=== PATIENT | male | born 1995 | race Caucasian/White ===

== ENCOUNTER 2018-08-23 21:55 | Emergency (ER) | payer OTHER, MEDICAID, SELFPAY ==
[2018-08-23 22:04] VITALS: BP 116/73; PULSE 85; RESP 16; TEMP 36.4; O2SAT 96; BMI 19.6
--- NOTE | 2018-08-25 05:49 | ED.BACK ---
HPI - Back Pain/Injury General Chief Complaint: Back Pain/Injury Stated Complaint: neck pain since this morning Related Data Previous Rx's Medication Instructions Recorded cyclobenzaprine 10 mg PO TID PRN #20 tab 08/24/18 naproxen 500 mg PO BID PRN #20 tab 08/24/18 Allergies Allergy/AdvReac Type Severity Reaction Status Date / Time No Known Drug Allergies Allergy Verified 08/23/18 22:09 ON LICENSE OF [facility] Social History Smoking Status: Never smoker Social History Smoking Status: Never smoker Exam Initial Vital Signs Initial Vital Signs: Vital Signs Temperature 97.5 F L 08/23/18 22:04 Pulse Rate 85 08/23/18 22:04 Respiratory Rate 16 08/23/18 22:04 Blood Pressure 116/73 08/23/18 22:04 Pulse Oximetry 96 08/23/18 22:04 Discharge Plan Departure Patient Disposition: Left Without Being Seen Clinical Impression: Patient left without being seen Discharge Date/Time: 08/24/18 01:52 Interventions: ED Discharge Assessment Last Done: 08/24/18 01:52
== END 2018-08-24 01:52 | disposition left against medical advice (07) ==
PROVIDERS: Emergency Provider Emergency Medicine; Family Provider Family Medicine; PCP Family Medicine
DX: M54.2 Cervicalgia (principal); Z53.21 Procedure and treatment not carried out due to patient leaving prior to being seen by health care provider
CPT/HCPCS: 99282

== ENCOUNTER 2018-08-24 10:13 | Emergency (ER) | payer OTHER, MEDICAID, SELFPAY ==
[2018-08-24 10:17] VITALS: BP 130/76; PULSE 83; RESP 20; TEMP 36.1; O2SAT 100; BMI 19.6
--- NOTE | 2018-08-24 12:16 | ED.NECK ---
HPI - Neck Pain/Injury [facility] - Last Filed: 08/24/18 13:47> General Chief Complaint: Neck Pain/Injury Stated Complaint: NECK PAIN Time Seen by Provider: 08/24/18 12:10 Source: patient Mode of arrival: ambulatory Limitations: no limitations History of Present Illness HPI Narrative: Patient is a healthy 22-year-old male nonsmoker presents with his mother with a chief complaint of neck pain since yesterday. he states that he woke up yesterday popped his neck and all the sudden the muscles on the left side of his neck seized up. he denies any numbness, tingling, incontinence. He denies any trauma or falls. He has not taken anything for the pain and denies Tylenol or ibuprofen use. He has tried to use ice and heat on occasion. He denies any weakness. He believes he is having muscle spasms. He came to the emergency department last night but left due to wait times. Related Data Previous Rx's Medication Instructions Recorded cyclobenzaprine 10 mg PO TID PRN #20 tab 08/24/18 naproxen 500 mg PO BID PRN #20 tab 08/24/18 Allergies Allergy/AdvReac Type Severity Reaction Status Date / Time No Known Drug Allergies Allergy Verified 08/23/18 22:09 Review of Systems <[facility] - Last Filed: 08/24/18 13:47> Review of Systems GENERAL: Denies chills, fatigue, malaise, fever, sweats. HEENT: Denies sinus pain, ear pain, sore throat, difficulty swallowing, dizziness. RESPIRATORY: Denies dyspnea, cough, wheezing, hemoptysis, sputum. CARDIOVASCULAR: Denies chest pain, palpitations, orthopnea, edema, GASTROINTESTINAL: Denies nausea, vomiting, abdominal pain, diarrhea, constipation, melena. : Denies dysuria, frequency, incontinence, hematuria, urinary retention. MUSCULOSKELETAL: See HPI SKIN: Denies rash, skin lesions, or other NEUROLOGIC: Denies weakness, headache, numbness, change in speech, confusion, seizures, incoordination. PSYCHIATRIC: No concerning psychosocial issues. 12 point review of systems is negative except for those stated above [facility] - Last Filed: 08/24/18 13:47> Social History Smoking Status: Never smoker Social History Smoking Status: Never smoker Exam <JONES Eddy - Last Filed: 08/24/18 13:47> Narrative Exam Narrative: GENERAL: This is a well-nourished, well-developed patient, In no acute distress with mother at bedside HEAD: Atraumatic. Normocephalic. No temporal or scalp tenderness. EYES: Pupils equal round and reactive. Extraocular motions intact. No scleral icterus. No injection or drainage. ENT: Nose without bleeding, purulent drainage or septal hematoma. Throat without erythema, tonsillar hypertrophy or exudate. Uvula midline. Airway patent. NECK: Trachea midline. No JVD or lymphadenopathy. Supple, nontender, no meningeal signs. CARDIOVASCULAR: Regular rate and rhythm without murmurs, gallops, or rubs. RESPIRATORY: Clear to auscultation. Breath sounds equal bilaterally. No wheezes, rales, or rhonchi. No cough. No increased respiratory effort. EXTREMITIES: No clubbing, cyanosis, or edema. No joint tenderness, effusion, or edema noted. Strength is equal upper and lower extremities bilaterally. BACK: Nontender without deformity or crepitance. No flank tenderness. No pain to C-spine or spinal palpation. Pain to palpation of left sternocleidomastoid. NEURO: AOx3. Strength is equal upper and lower extremities bilaterally. No obvious cranial nerve deficit. SKIN: No rash or erythema. no erythema, ecchymosis or abrasion laceration noted left-sided neck. Initial Vital Signs Initial Vital Signs: Vital Signs Temperature 97.0 F L 08/24/18 10:17 Pulse Rate 83 08/24/18 10:17 Respiratory Rate 08/24/18 10:17 Blood Pressure 130/76 08/24/18 10:17 Pulse Oximetry 100 08/24/18 10:17 <Maryam Phillips DO - Last Filed: 08/25/18 20:01> Initial Vital Signs Initial Vital Signs: Vital Signs Temperature 97.0 F L 08/24/18 10:17 Pulse Rate 83 08/24/18 10:17 Respiratory Rate 20 08/24/18 10:17 Blood Pressure 130/76 08/24/18 10:17 Pulse Oximetry 100 08/24/18 10:17 Course <JONES Eddy - Last Filed: 08/24/18 13:47> Course Narrative: He checked on the patient during his stay in the emergency department. He stated pain relief from the Toradol and Flexeril. He requested to go home. Orders Ordered: Discontinued Medications Cyclobenzaprine HCl (Flexeril) 10 mg PO NOW ONE Stop: 08/24/18 12:18 Last Admin: 08/24/18 12:20 Dose: 10 mg Ketorolac Tromethamine (Toradol) 60 mg IM NOW ONE Stop: 08/24/18 12:18 Last Admin: 08/24/18 12:20 Dose: 60 mg Vital Signs - 8 hr 08/24/18 10:17 08/24/18 13:21 Temperature 97.0 F L Pulse Rate 83 77 Respiratory Rate 20 18 Blood Pressure 130/76 116/75 Pulse Oximetry 100 100 <Maryam Phillips DO - Last Filed: 08/25/18 20:01> Orders Ordered: Discontinued Medications Cyclobenzaprine HCl (Flexeril) 10 mg PO NOW ONE Stop: 08/24/18 12:18 Last Admin: 08/24/18 12:20 Dose: 10 mg Ketorolac Tromethamine (Toradol) 60 mg IM NOW ONE Stop: 08/24/18 12:18 Last Admin: 08/24/18 12:20 Dose: 60 mg Vital Signs - 8 hr 08/24/18 10:17 08/24/18 13:21 Temperature 97.0 F L Pulse Rate 83 77 Respiratory Rate 20 18 Blood Pressure 130/76 116/75 Pulse Oximetry 100 100 [facility] - Neck Pain/Injury <MAULIK Eddy-BC - Last Filed: 08/24/18 13:47> [facility] Narrative Medical decision making narrative: patient presents with a chief complaint of neck pain after popping his neck without trauma or falls. Exam is consistent with muscle spasm. I discussed the possibility of x-ray, patient And his mothermother declined at this point time. He was treated in the emergency department Toradol and Flexeril. He is doing with vascularly intact and does not have an obvious deficit. He is hemodynamically stable in achieve pain relief with medications given. I discussed at length return precautions of worsening, no improvement, any neurological conditions. I encouraged him to follow up with his primary care provider in the next 2 days. Patient and mother denied questions or concerns at this point time. Discharge Plan Departure Patient Disposition: Home Clinical Impression: Strain of neck muscle Qualifiers: Encounter type: initial encounter Qualified Code(s): S16.1XXA - Strain of muscle, fascia and tendon at neck level, initial encounter Discharge Date/Time: 08/24/18 13:21 Interventions: ED Discharge Assessment Last Done: 08/24/18 13:21 Instructions: DI for Muscle Strain, DI for Neck Pain Activity Restrictions/Additional Instructions: Your exam is consistent with muscle strain or spasm. Please use the as needed muscle relaxer as we discussed. You can start taking in the prescription naproxen tonight. Do not combine that with ibuprofen or any other NSAIDs. Monitor for any changes in strength or neurological compromise. Please be evaluated if any of these happen. Follow up with her primary care provider as we discussed. Come back to the emergency department for any acute concerns. Prescriptions: New cyclobenzaprine 10 mg tablet 10 mg PO TID PRN (Reason: muscle spasm) Qty: 20 RF: 0 naproxen 500 mg tablet 500 mg PO BID PRN (Reason: pain) Qty: 20 RF: 0 Referrals: Pedro Mojica MD [Primary Care Provider] - <Maryam Phillips DO - Last Filed: 08/25/18 20:01> Cosign ED Attending Urielature Attestation: I was immediately available in the department for consultation. Documentation has been reviewed. I agree with assessment and plan.
--- NOTE | 2018-08-24 12:19 | ED_ITS ---
HPI - Neck Pain/Injury <[facility] - Last Filed: 08/24/18 13:47> General Chief Complaint: Neck Pain/Injury Stated Complaint: NECK PAIN Time Seen by Provider: 08/24/18 12:10 Source: patient Mode of arrival: ambulatory Limitations: no limitations History of Present Illness HPI Narrative: Patient is a healthy 22-year-old male nonsmoker presents with his mother with a chief complaint of neck pain since yesterday. he states that he woke up yesterday popped his neck and all the sudden the muscles on the left side of his neck seized up. he denies any numbness, tingling, incontinence. He denies any trauma or falls. He has not taken anything for the pain and denies Tylenol or ibuprofen use. He has tried to use ice and heat on occasion. He denies any weakness. He believes he is having muscle spasms. He came to the emergency department last night but left due to wait times. Related Data Previous Rx's Medication Instructions Recorded cyclobenzaprine 10 mg PO TID PRN #20 tab 08/24/18 naproxen 500 mg PO BID PRN #20 tab 08/24/18 Allergies Allergy/AdvReac Type Severity Reaction Status Date / Time No Known Drug Allergies Allergy Verified 08/23/18 22:09 [facility] Systems [facility] Last Filed: 08/24/18 13:47> Review of Systems GENERAL: Denies chills, fatigue, malaise, fever, sweats. HEENT: Denies sinus pain, ear pain, sore throat, difficulty swallowing, dizziness. RESPIRATORY: Denies dyspnea, cough, wheezing, hemoptysis, sputum. CARDIOVASCULAR: Denies chest pain, palpitations, orthopnea, edema, GASTROINTESTINAL: Denies nausea, vomiting, abdominal pain, diarrhea, constipation, melena. : Denies dysuria, frequency, incontinence, hematuria, urinary retention. MUSCULOSKELETAL: See HPI SKIN: Denies rash, skin lesions, or other NEUROLOGIC: Denies weakness, headache, numbness, change in speech, confusion, seizures, incoordination. PSYCHIATRIC: No concerning psychosocial issues. 12 point review of systems is negative except for those stated above PFSH <[facility] - Last Filed: 08/24/18 13:47> Social History Smoking Status: Never smoker Social History Smoking Status: Never smoker Exam <JONES Eddy - Last Filed: 08/24/18 13:47> Narrative Exam Narrative: GENERAL: This is a well-nourished, well-developed patient, In no acute distress with mother at bedside HEAD: Atraumatic. Normocephalic. No temporal or scalp tenderness. EYES: Pupils equal round and reactive. Extraocular motions intact. No scleral icterus. No injection or drainage. ENT: Nose without bleeding, purulent drainage or septal hematoma. Throat without erythema, tonsillar hypertrophy or exudate. Uvula midline. Airway patent. NECK: Trachea midline. No JVD or lymphadenopathy. Supple, nontender, no meningeal signs. CARDIOVASCULAR: Regular rate and rhythm without murmurs, gallops, or rubs. RESPIRATORY: Clear to auscultation. Breath sounds equal bilaterally. No wheezes, rales, or rhonchi. No cough. No increased respiratory effort. EXTREMITIES: No clubbing, cyanosis, or edema. No joint tenderness, effusion, or edema noted. Strength is equal upper and lower extremities bilaterally. BACK: Nontender without deformity or crepitance. No flank tenderness. No pain to C-spine or spinal palpation. Pain to palpation of left sternocleidomastoid. NEURO: AOx3. Strength is equal upper and lower extremities bilaterally. No obvious cranial nerve deficit. SKIN: No rash or erythema. no erythema, ecchymosis or abrasion laceration noted left-sided neck. Initial Vital Signs Initial Vital Signs: Vital Signs Temperature 97.0 F L 08/24/18 10:17 Pulse Rate 83 08/24/18 10:17 Respiratory Rate 08/24/18 10:17 Blood Pressure 130/76 08/24/18 10:17 Pulse Oximetry 100 08/24/18 10:17 <Maryam Phillips DO - Last Filed: 08/25/18 20:01> Initial Vital Signs Initial Vital Signs: Vital Signs Temperature 97.0 F L 08/24/18 10:17 Pulse Rate 83 08/24/18 10:17 Respiratory Rate 20 08/24/18 10:17 Blood Pressure 130/76 08/24/18 10:17 Pulse Oximetry 100 08/24/18 10:17 Course <JONES Eddy - Last Filed: 08/24/18 13:47> Course Narrative: He [facility] on the [facility] He stated pain relief from the Toradol and Flexeril. He requested to go home. Orders Ordered: Discontinued Medications Cyclobenzaprine HCl (Flexeril) 10 mg PO NOW ONE Stop: 08/24/18 12:18 Last Admin: 08/24/18 12:20 Dose: 10 mg Ketorolac Tromethamine (Toradol) 60 mg IM NOW ONE Stop: 08/24/18 12:18 Last Admin: 08/24/18 12:20 Dose: 60 mg Vital Signs - 8 hr 08/24/18 10:17 08/24/18 13:21 Temperature 97.0 F L Pulse Rate 83 77 Respiratory Rate 20 18 Blood Pressure 130/76 116/75 Pulse Oximetry 100 100 <Maryam Phillips DO - Last Filed: 08/25/18 20:01> Orders Ordered: Discontinued Medications Cyclobenzaprine HCl (Flexeril) 10 mg PO NOW ONE Stop: 08/24/18 12:18 Last Admin: 08/24/18 12:20 Dose: 10 mg Ketorolac Tromethamine (Toradol) 60 mg IM NOW ONE Stop: 08/24/18 12:18 Last Admin: 08/24/18 12:20 Dose: 60 mg Vital Signs - 8 hr 08/24/18 10:17 08/24/18 13:21 Temperature 97.0 F L Pulse Rate 83 77 Respiratory Rate 20 18 Blood Pressure 130/76 116/75 Pulse Oximetry 100 100 [facility] - Neck Pain/Injury <MAULIK Eddy-BC - Last Filed: 08/24/18 13:47> [facility] Narrative Medical decision making narrative: patient presents with a chief complaint of neck pain after popping his neck without trauma or falls. Exam is consistent with muscle spasm. I discussed the possibility of x-ray, patient And his mothermother declined at this point time. He was treated in the emergency department Toradol and Flexeril. He is doing with vascularly intact and does not have an obvious deficit. He is hemodynamically stable in achieve pain relief with medications given. I discussed at length return precautions of worsening, no improvement, any neurological conditions. I encouraged him to follow up with his primary care provider in the next 2 days. Patient and mother denied questions or concerns at this point time. Discharge Plan Departure Patient Disposition: Home Clinical Impression: Strain of neck muscle Qualifiers: Encounter type: initial encounter Qualified Code(s): S16.1XXA - Strain of muscle, fascia and tendon at neck level, initial encounter Discharge Date/Time: 08/24/18 13:21 Interventions: ED Discharge Assessment Last Done: 08/24/18 13:21 Instructions: DI for Muscle Strain, DI for Neck Pain Activity Restrictions/Additional Instructions: Your exam is consistent with muscle strain or spasm. Please use the as needed muscle relaxer as we discussed. You can start taking in the prescription naproxen tonight. Do not combine that with ibuprofen or any other NSAIDs. Monitor for any changes in strength or neurological compromise. Please be evaluated if any of these happen. Follow up with her primary care provider as we discussed. Come back to the emergency department for any acute concerns. Prescriptions: New cyclobenzaprine 10 mg tablet 10 mg PO TID PRN (Reason: muscle spasm) Qty: 20 RF: 0 naproxen 500 mg tablet 500 mg PO BID PRN (Reason: pain) Qty: 20 RF: 0 Referrals: Pedro Mojica MD [Primary Care Provider] - <Maryam Phillips DO - Last Filed: 08/25/18 20:01> Cosign ED Attending Delbert Attestation: I was immediately available in the department for consultation. Documentation has been reviewed. I agree with assessment and plan.
[2018-08-24] MEDS: CYCLOBENZAPRINE 10 MG TABLET PO (12:20)
[2018-08-24] MEDS: KETOROLAC 60 MG/2 ML VIAL IM (12:20)
[2018-08-24 13:21] VITALS: BP 116/75; PULSE 77; RESP 18; O2SAT 100
== END 2018-08-24 13:21 | disposition home or self-care (01) ==
PROVIDERS: Emergency Provider Nurse Practitioner Family; PCP Family Medicine
DX: S16.1XXA Strain of muscle, fascia and tendon at neck level, initial encounter (principal)
CPT/HCPCS: 99282; J1885

== ENCOUNTER 2020-02-01 15:53 | Emergency (ER) | payer BC, SELFPAY ==
[2020-02-01 16:01] VITALS: BP 140/87; PULSE 91; RESP 16; TEMP 37.1; O2SAT 98
--- NOTE | 2020-02-01 16:09 | DI.CT.S_ITS ---
PROCEDURE: CT HEAD/BRAIN WO CON INDICATIONS: New onset headache with left arm numbness TECHNIQUE: Noncontrast 4.5 mm thick angled axial sections acquired from the foramen magnum to the vertex, with coronal and sagittal reformats. For radiation dose reduction, the following was used: automated exposure control, adjustment of mA and/or kV according to patient size. COMPARISON: None. FINDINGS: Image quality: Excellent. CSF spaces: Basal cisterns are patent. No extra-axial fluid collections. Ventricles are normal in size and shape. Brain: No midline shift. No intracranial masses or hemorrhage. [place]-white matter interface is normal. Skull and face: Calvarium and visualized facial bones are intact, without suspicious lesions. Sinuses: Visualized sinuses and mastoids are clear. IMPRESSION: No acute intracranial finding. MRI recommended if there is clinical concern for acute ischemia. Dictated by: Rashad Kruger M.D. on 02/01/2020 at 16:26 Approved by: Rashad Kruger M.D. on 02/01/2020 at 16:27
[2020-02-01 16:15] LABS: Add Manual Diff / Slide Review NO; Basophils Absolute Auto 100 /uL (0-100); Eosinophils Absolute Auto 300 /uL (0-450); Eosinophils Percent Auto 4.1 % (2-4); Hematocrit 43.9 % (41-53); Hemoglobin 14.9 g/dL (13.5-17.5); Lymphocytes Absolute Auto 2900 /uL (1100-4500); Lymphocytes Percent Auto 44.7 % (25-40); Mean Corpuscular HGB Conc 33.9 % (30-36); Mean Corpuscular Hemoglobin 29.7 PG (26-34); Mean Corpuscular Volume 87.5 fL (80-100); Monocytes Absolute Auto 600 /uL (0-900); Monocytes Percent Auto 9.2 % (3-14); Neutrophils Absolute Auto 2700 /uL (1500-7000); Platelet Count 286 X10^3/uL (150-400); Red Blood Cell Count 5.01 X10^6/uL (4.5-5.9); Red Cell Distribution Width 12.7 % (11.6-14.8); White Blood Cell Count 6.5 X10^3/uL (4.5-11.0)
--- NOTE | 2020-02-01 16:19 | PC.NURSE ---
patient states at 1300 while at [employer] felt blurry vision. Went home rested, upon waking noticed left peripheral vision loss in both eyeswhich has since resolved. Patient reports over time vision has improved but headache has gotten worse. patient reports increase stress, not eating and drinking well has noticed some constipation
[2020-02-01 16:30] LABS: Alanine Aminotransferase 13 IU/L (<50); Albumin 4.9 g/dL (3.5-5.0); Albumin Globulin Ratio 1.6 (1.0-2.8); Alkaline Phosphatase 81 U/L (38-126); Aspartate Aminotransferase 21 IU/L (17-59); BUN Creatinine Ratio 15.2 (6-22); Bilirubin Total 0.9 mg/dL (0.2-1.3); Blood Urea Nitrogen 15 mg/dL (9-20); Calcium 9.7 mg/dL (8.4-10.2); Carbon Dioxide 26 mmol/L (22-32); Chloride 104 mmol/L (98-107); Estimated Glomerular Filt Rate > 60.0 mL/min (>60); Glucose 105 mg/dL (70-100); HEMOLYSIS < 15 (0-50); Potassium 3.9 mmol/L (3.4-5.1); Sodium 138 mmol/L (137-145); Total Protein 7.9 g/dL (6.3-8.2)
--- NOTE | 2020-02-01 16:30 | ED_ITS ---
HPI - Neuro Symptoms/Deficit General Chief Complaint: Neuro Symptoms/Deficit Stated Complaint: HEADACHE LOSS OF VISION LEFT ARM NUMBNESS Time Seen by Provider: 02/01/20 16:07 Source: patient Mode of arrival: Ambulatory Limitations: no limitations History of Present Illness HPI Narrative: Patient is a healthy 24-year-old male with no known medical history presenting today with headache blurry vision and left arm numbness all which have improved. He says about 1:00 p.m. he started noticing some blurry vision he went home and took a nap which point he woke up and has some left arm numbness. He says his left arm has improved he still has some blurry vision in bilateral eyes, he denies any blackening or loss of vision at any time. He now has slight headache. He otherwise is feeling healthy he denies any infectious symptoms including fever shortness of breath or chest pain. On Anticoagulants: No Associated symptoms: denies other symptoms Related Data Previous Rx's Medication Instructions Recorded cyclobenzaprine 10 mg PO TID PRN #20 tab 08/24/18 naproxen 500 mg PO BID PRN #20 tab 08/24/18 Allergies Allergy/AdvReac Type Severity Reaction Status Date / Time No Known Drug Allergies Allergy Verified 08/23/18 22:09 Review of Systems Review of Systems Narrative: GENERAL: Denies chills, fatigue, malaise, fever, sweats, travel HEENT: Denies sinus pain, ear pain, sore throat, difficulty swallowing, neck pain RESPIRATORY: Denies dyspnea, cough, wheezing, hemoptysis, sputum. CARDIOVASCULAR: Denies chest pain, palpitations, orthopnea, edema GASTROINTESTINAL: Denies nausea, vomiting, abdominal pain, diarrhea, constipation, melena. : Denies dysuria, frequency, incontinence, hematuria, urinary retention, flank pain. MUSCULOSKELETAL: Denies weakness, joint pain, or bony pain SKIN: No rash, no erythema, no pruritus NEUROLOGIC: See HPI PSYCHIATRIC: No concerning psychosocial issues. 12 point review of systems is negative except for those stated above and HPI Patient History Medical History Patient denies medical problems (Acute) Social History Smoking Status: Never smoker Smoking Status: Never smoker alcohol intake frequency: 0-2 drinks per day Substance Use Type: marijuana Exam Initial Vital Signs Initial Vital Signs: Vital Signs Temperature 98.7 F 02/01/20 16:01 Pulse Rate 91 H 02/01/20 16:01 Respiratory Rate 16 02/01/20 16:01 Blood Pressure 140/87 02/01/20 16:01 Pulse Oximetry 98 02/01/20 16:01 GENERAL: Well-appearing, well-nourished and in no acute distress. HEENT: Head atraumatic,EOMI, pupils reactive, face symmetric, moist mucous membranes CARDIOVASCULAR: Regular rate and rhythm without murmurs, rubs or gallops. RESPIRATORY: Breath sounds equal bilaterally, no wheezes rales or rhonchi. ABDOMEN: Soft, nontender. Normoactive bowel sounds all 4 quadrants. No gua rding or rebound. EXTREMITIES: Normal range of motion, no clubbing or edema. Neurovascularly intact NEUROLOGICAL: Alert and oriented x4.Normal gait and speech. Cranial nerves II through XII grossly intact. Good [id number], good [id number], strength equal bilaterally, no dysarthria or aphasia, sensation in tact to soft touch bilaterally, no visual changes, no facial droop SKIN: Warm, dry, no laceration, no petechiae, no rashes or lesions. Scores NIH Stroke Scale Level of Conciousness: Alert, keenly responsive Ask month/age: Answers both questions correctly. Open/close eyes, close hand: Performs both tasks correctly Best gaze horizontal: Normal Visual kerr: No visual loss Facial palsy: Normal symetrical movement Left arm drift: No drift for full 10 sec Right arm drift: No drift for full 10 sec Left leg drift: No drift for full 10 sec Right leg drift: No drift for full 10 sec Limb ataxia: Absent Sensory on face/arms/legs: Normal, no sensory loss Best language: No aphasia, normal Dysarthria: Normal Extinction or inattention: No abnormality Total NIH Stroke scale score: 0 Course Orders Ordered: Discontinued Medications Sodium Chloride (Normal Saline 0.9%) 1,000 mls @ 1,000 mls/hr IV BOLUS ONE Stop: 02/01/20 17:08 Last Infusion: 02/01/20 17:41 Dose: 1,000 mls/hr Documented by: Admin: 02/01/20 16:32 Dose: 1,000 mls/hr Documented by: BTONER Vital Signs Vital signs: Vital Signs - 8 hr 02/01/20 16:01 Temperature 98.7 F Pulse Rate 91 H Respiratory Rate 16 Blood Pressure 140/87 Pulse Oximetry 98 MDM - Neuro Symptoms/Deficit Lab Data Attestation: I reviewed the patient's lab results. Result diagrams: 02/01/20 16:10 02/01/20 16:10 Labs: Lab Results 02/01/20 02/01/20 Range/Units 16:10 16:10 WBC 6.5 (4.5-11.0) X10^3/uL RBC 5.01 (4.5-5.9) X10^6/uL Hgb 14.9 (13.5-17.5) g/dL Hct 43.9 (41-53) % MCV 87.5 (80-100) fL MCH 29.7 (26-34) PG MCHC 33.9 (30-36) % RDW 12.7 (11.6-14.8) % Plt Count 286 (150-400) X10^3/uL Neut % (Auto) 41.0 L (50-75) % Lymph % (Auto) 44.7 H (25-40) % [place] % (Auto) 9.2 (3-14) % Eos % (Auto) 4.1 H (2-4) % Baso % (Auto) 1.0 (0-2) % Neut # (Auto) 2700 (3905-7138) /uL Lymph # (Auto) 2900 (9900-9778) /uL [place] # (Auto) 600 (0-900) /uL Eos # (Auto) 300 (0-450) /uL Baso # (Auto) 100 (0-100) /uL Sodium 138 (137-145) mmol/L Potassium 3.9 (3.4-5.1) mmol/L Chloride 104 (98-107) mmol/L Carbon Dioxide 26 (22-32) mmol/L BUN 15 (9-20) mg/dL Creatinine 0.99 (0.66-1.25) mg/dL Estimated GFR > 60.0 (>60) mL/min BUN/Creatinine Ratio 15.2 (6-22) Glucose 105 H (70-100) mg/dL Calcium 9.7 (8.4-10.2) mg/dL Total Bilirubin 0.9 (0.2-1.3) mg/dL AST 21 (17-59) IU/L ALT 13 (<50) IU/L Alkaline Phosphatase 81 (38-126) U/L Total Protein 7.9 (6.3-8.2) g/dL Albumin 4.9 (3.5-5.0) g/dL Globulin 3.0 (1.7-4.1) g/dL Albumin/Globulin Ratio 1.6 (1.0-2.8) Imaging Data CT scan - head: Radiologist's Impression: PROCEDURE: CT HEAD/BRAIN WO CON INDICATIONS: New onset headache with left arm numbness TECHNIQUE: Noncontrast 4.5 mm thick angled axial sections acquired from the foramen magnum to the vertex, with coronal and sagittal reformats. For radiation dose reduction, the following was used: automated exposure control, adjustment of mA and/or kV according to patient size. COMPARISON: None. FINDINGS: Image quality: Excellent. CSF spaces: Basal cisterns are patent. No extra-axial fluid collections. Ventricles are normal in size and shape. Brain: No midline shift. No intracranial masses or hemorrhage. [place]-white matter interface is normal. Skull and face: Calvarium and visualized facial bones are intact, without suspicious lesions. Sinuses: Visualized sinuses and mastoids are clear. IMPRESSION: No acute intracranial finding. MRI recommended if there is clinical concern for acute ischemia. Dictated by: Rashad Kruger M.D. on 02/01/2020 at 16:26 ECG Data Attestation: I personally reviewed and interpreted this ECG as follows: Prior ECG tracings: not available for review Interpretation: Normal sinus rhythm rate 76 p.r. interval 140 QRS [address] changes normal intervals no priors to compare MDM Narrative Medical decision making narrative: Patient's symptoms have completely resolved as his headache improved he no rule focal deficits at this time I think symptoms may be related to complicated headache which now seems to be improving. He has no prior history of migraines. At this time I recommend he go home and return if symptoms worsen. Discharge Plan Departure Patient Disposition: Home Clinical Impression: Headache Qualifiers: Headache type: unspecified Headache chronicity pattern: unspecified pattern Intractability: not intractable Qualified Code(s): R51 - Headache Discharge Date/Time: 02/01/20 17:42 Instructions: DI for Headache Activity Restrictions/Additional Instructions: *You have been diagnosed with headache *What to do: At this time blood work and CT are overall reassuring and show no abnormality. Recommend he rest and stay hydrated. *Continue to take medications as directed *Follow up with your primary care provider in 2-3 days *Return to ER if you should have worsening headache visual changes weakness numbness tingling or any new, worsening or concerning symptoms Prescriptions: No Action cyclobenzaprine 10 mg tablet 10 mg PO TID PRN (Reason: muscle spasm) Qty: 20 RF: 0 naproxen 500 mg tablet 500 mg PO BID PRN (Reason: pain) Qty: 20 RF: 0 Referrals: Pedro Mojica MD [Primary Care Provider] -
[2020-02-01] MEDS: SODIUM CHLORIDE 0.9% 1,000 ML 1000 ML IV (16:32)
[2020-02-01 17:42] VITALS: BP 116/70; PULSE 66; RESP 14; O2SAT 99
== END 2020-02-01 17:42 | disposition home or self-care (01) ==
PROVIDERS: Emergency Provider Emergency Medicine; PCP Family Medicine
DX: R51 Headache (principal); H53.8 Other visual disturbances; R20.0 Anesthesia of skin
CPT/HCPCS: 36415; 70450; 80053; 85025; 93005; 96360; 99284; 99285

== ENCOUNTER → 2020-10-05 08:45 | Outpatient (CLI) | payer BC, SELFPAY ==
[2020-10-07 01:12] LABS: Chlamydia trachomatis NAA Negative (Negative); Neisseria gonorrhoeae NAA Negative (Negative)
== END ==
PROVIDERS: Visit Provider Student in an Organized Health Care Education/Training Program
DX: J02.9 Acute pharyngitis, unspecified (principal)
CPT/HCPCS: 87070; 87491; 87591

== ENCOUNTER 2021-02-17 04:31 | Emergency (ER) | payer BC, SELFPAY ==
[2021-02-17 04:45] VITALS: BP 136/74; PULSE 93; RESP 16; TEMP 37.2; O2SAT 99; BMI 21.5
--- NOTE | 2021-02-17 05:19 | ED.HA ---
HPI - Headache General Chief Complaint: Headache Stated Complaint: migraine body aches x1 day Time Seen by Provider: 02/17/21 05:19 Mode of arrival: Ambulatory Limitations: no limitations History of Present Illness HPI Narrative: 25-year-old male nonsmoker without any contributing medical history presents with a chief complaint of gradual headache over the course of the day which is frontal in nature and seems to be worse with bright lights and loud noise. He denies any recent injury nor fever or chills. He has no neck pain or neurologic symptoms such as blurred vision, trouble with speech or weakness. He has had some nasal congestion and runny nose as well as body aches. He has some nausea but no vomiting. He denies any diarrhea. He has had no urinary complaints. Related Data Previous Rx's Medication Instructions Recorded cyclobenzaprine 10 mg tablet 10 mg PO TID PRN #20 tab 08/24/18 naproxen 500 mg tablet 500 mg PO BID PRN #20 tab 08/24/18 Allergies Allergy/AdvReac Type Severity Reaction Status Date / Time No Known Drug Allergies Allergy Verified 10/05/20 09:19 Review of Systems Review of Systems Narrative: GENERAL: See HPI HEENT: See HPI RESPIRATORY: Denies dyspnea, cough, wheezing, hemoptysis, sputum. CARDIOVASCULAR: Denies chest pain, palpitations, orthopnea, edema, GASTROINTESTINAL: Denies nausea, vomiting, abdominal pain, diarrhea, constipation, melena. : Denies dysuria, frequency, incontinence, hematuria, urinary retention. MUSCULOSKELETAL: denies weakness, joint pain, or bony pain SKIN: Denies rash, skin lesions, or other NEUROLOGIC: see HPI PSYCHIATRIC: No concerning psychosocial issues. 12 point review of systems is negative except for those stated above Patient History Medical History (Updated 02/17/21 @ 06:05 by Jason Crawford DO) Patient denies medical problems Social History Smoking Status: Never smoker Smoking Status: Never smoker alcohol intake frequency: 0-2 drinks per day Substance Use Type: marijuana Exam Narrative Exam Narrative: GENERAL: [25] year old patient appears stated age. Well-developed patient, in mild distress. HEAD: Atraumatic. Normocephalic. EYES: Pupils equal round and reactive. Extraocular motions intact. No scleral icterus. No injection or drainage. ENT: Nose without bleeding, purulent drainage. Throat without erythema, tonsillar hypertrophy or exudate. Airway patent. NECK: Trachea midline. Non tender CARDIOVASCULAR: Regular rate and rhythm without murmurs, gallops, or rubs. RESPIRATORY: Clear to auscultation. Breath sounds equal bilaterally. No wheezes, rales, or rhonchi. GASTROINTESTINAL: Abdomen soft, non-tender, nondistended. EXTREMITIES: No edema or joint tenderness. BACK: Nontender without deformity or crepitance. No flank tenderness. NEURO: AOx3. SKIN: No rash or erythema of visible areas NIH Stroke Scale 1a. LOC: Patient is alert and keenly responsive (0) 1b. LOC Questions: Patient answers both LOC questions accurately (0) 1c. LOC Commands: Patient performs both tasks correctly (0) 2. Best Gaze: Normal (0) 3. Visual: No visual loss (0) 4. Facial palsy: Normal symmetrical movements (0) 5. Motor arm: No drift (0) 6. Motor leg: No drift (0) 7. Limb ataxia: Absent (0) 8. Sensory: Normal (0) 9. Best language: No aphasia; normal (0) 10. Dysarthria: Normal (0) 11. Extinction and inattention: No abnormality (0) NIHSS: 0 Initial Vital Signs Initial Vital Signs: Vital Signs Temperature 98.9 F 02/17/21 04:45 Pulse Rate 93 H 02/17/21 04:45 Respiratory Rate 16 02/17/21 04:45 Blood Pressure 136/74 02/17/21 04:45 Pulse Oximetry 99 02/17/21 04:45 Course Orders Ordered: ED Orders 02/17/21 05:00 COVID19 -Nasal swab/Pre-Proc Stat Sodium Chloride (Normal Saline 0.9%) 1,000 mls @ 1,000 mls/hr IV BOLUS ONE Stop: 02/17/21 06:23 Last Admin: 02/17/21 05:48 Dose: 1,000 mls/hr Documented by: NIKKIE Discontinued Medications Ketorolac Tromethamine (Ketorolac 30 Mg/Ml Vial) 15 mg IV NOW ONE Stop: 02/17/21 05:25 Last Admin: 02/17/21 05:48 Dose: 15 mg Documented by: NIKKIE Ondansetron HCl (Ondansetron 4 Mg/2 Ml Inj) 4 mg IV NOW ONE Stop: 02/17/21 05:25 Last Admin: 02/17/21 05:48 Dose: 4 mg Documented by: NIKKIE Vital Signs Vital signs: Vital Signs - 8 hr 02/17/21 04:45 Temperature 98.9 F Pulse Rate 93 H Respiratory Rate 16 Blood Pressure 136/74 Pulse Oximetry 99 MDM - Headache Lab Data Labs: Lab Results 02/17/21 Range/Units 05:00 SARS-CoV-2 (PCR) Positive H (Negative) Discharge Plan Departure Patient Disposition: Home Clinical Impression: COVID-19 Activity Restrictions/Additional Instructions: *You have been diagnosed with [ COVID-19] *What to do: * per recommendations from the CDC and the [facility] Department of Health * stay home except to get medical care. Restrict activities outside your home, except for getting medical care. Do not go to work, school, or public areas. Avoid using public transportation, ride sharing, or taxis. * separate yourself from other people in your home. * call ahead before visiting your doctor * Wear a facemask * Cover your coughs and sneezes * Clean your hands often * Avoid sharing household items * Clean all high-touch services every day * Monitor your symptoms and seek prompt medical attention if your illness is worsening, particularly with difficulty in breathing. You may discontinue your isolation when: 1. You have been fever-free for at least 24 hours without the use of fever reducing medication, AND 2. Your symptoms are getting better 3. At least 10 days have passed since symptoms first appeared Individuals with laboratory confirmed COVID-19 who have not had any symptoms may discontinue home isolation when at least 10 days have passed since the date of their first COVID-19 diagnostic test and have had no subsequent illness Prescriptions: No Action cyclobenzaprine 10 mg tablet 10 mg PO TID PRN (Reason: muscle spasm) Qty: 20 RF: 0 naproxen 500 mg tablet 500 mg PO BID PRN (Reason: pain) Qty: 20 RF: 0 Referrals: Miscellaneous,Doctor, MD [Primary Care Provider] -
[2021-02-17 05:29] LABS: COVID19 -Nasal RAPID POSITIVE (Negative)
[2021-02-17] MEDS: ONDANSETRON 4 MG/2 ML INJ IV (05:48)
[2021-02-17] MEDS: SODIUM CHLORIDE 0.9% 1,000 ML 1000 ML IV (05:48)
[2021-02-17] MEDS: KETOROLAC 30 MG/ML VIAL 15 MG IV (05:48)
[2021-02-17 06:33] VITALS: BP 120/74; PULSE 94; RESP 20; O2SAT 98
== END 2021-02-17 06:36 | disposition home or self-care (01) ==
PROVIDERS: Emergency Provider Emergency Medicine
DX: U07.1 COVID-19 (principal)
CPT/HCPCS: 87635; 96361; 96374; 96375; 99283; 99284; C9803; J1885; J2405